=== PATIENT | female | born 1975 | race Caucasian/White ===

== ENCOUNTER 2016-07-14 18:04 | Inpatient (IN) | payer BC ==
[~2016-07-14] VITALS: Ht 165.1 cm; Wt 91.6 kg
[2016-07-14 18:28] VITALS: BP 125/69
[2016-07-14] MEDS ORDERED: COLACE100 MG PO (18:36)
[2016-07-14] MEDS ORDERED: PRENATAL TABLE1 EAC3 PO (18:36)
[2016-07-14] MEDS ORDERED: PROZAC40 MG PO (18:36)
[2016-07-14] MEDS ORDERED: PROBIOTIC1 EAC7 PO (18:37)
[2016-07-14] MEDS ORDERED: EVENING PRIMR1000 MG PO (18:37)
[2016-07-14 19:39] VITALS: BP 126/80
[2016-07-14 20:30] VITALS: BP 116/77
[2016-07-14 20:40] LABS: EOSINOPHIL (%) 0.2 % (0-5); HEMATOCRIT 37.7 % (36.0-46.0); IMMATURE GRANULOCYTE (%) 0.9 % (0.0-0.7); IMMATURE GRANULOCYTE COUNT 0.1 K/uL; MCHC 34.7 G/DL (30.0-36.0); MEAN PLAT.VOLUME 11.6 uM^3 (9.5-12.4); MONOCYTE (%) 7.1 % (3-12); MONOCYTE COUNT 0.7 K/uL (0-0.8); NEUTROPHIL (%) 71.8 % (45-76); NEUTROPHIL COUNT 7.1 K/uL (1.8-6.4); PLATELET COUNT 135 K/uL (156-360); RBC DIS.WIDTH-SD 45.2 % (39-53); RED BLOOD COUNT 3.97 M/uL (3.80-5.20); WHITE BLOOD COUNT 9.8 K/uL (4.1-10.2)
[2016-07-14 21:15] LABS: ALKALINE PHOSPHATASE 160 IU/L (3-129); ANION GAP 8 MEQ/L (2-14); CHLORIDE 102 MEQ/L (99-109); GFR ESTIMATE (CALCULATED) > 59 mL/min/; GLUCOSE 115 mg/dL (70-99); POTASSIUM 3.6 MEQ/L (3.7-5.4); SAMPLE HEMOLYSIS CHECK 0; SAMPLE ICTERIC CHECK 0; SAMPLE LIPEMIA CHECK 0; SODIUM 134 MEQ/L (136-147); TOTAL BILIRUBIN 0.5 MG/DL (0.0-1.0); UREA NITROGEN (BUN) 17 mg/dL (9-23)
[2016-07-14 21:26] VITALS: BP 119/72
[2016-07-14 21:46] LABS: POINT-OF-CARE METER ID UU13113801
[2016-07-14 22:26] VITALS: BP 126/80
[2016-07-14 23:12] VITALS: BP 97/54
[2016-07-15] VITALS (24 sets, daily range): BP systolic 89–125; BP diastolic 50–82
[2016-07-15 05:24] LABS: POINT-OF-CARE METER ID UU13113801
[2016-07-15 09:36] LABS: POINT-OF-CARE METER ID UU13113801
[2016-07-15 13:10] LABS: POINT-OF-CARE METER ID UU13113801
[2016-07-15 17:35] LABS: POINT-OF-CARE METER ID UU13113801
[2016-07-15 21:55] LABS: POINT-OF-CARE METER ID UU13113801
[2016-07-16] VITALS (23 sets, daily range): BP systolic 97–144; BP diastolic 54–75
[2016-07-16 05:14] LABS: POINT-OF-CARE METER ID UU13113801
[2016-07-16 09:19] LABS: POINT-OF-CARE METER ID UU13113801
[2016-07-16 14:23] LABS: POINT-OF-CARE METER ID UU13113801
[2016-07-16 16:20] LABS: POINT-OF-CARE METER ID UU13113801
[2016-07-17 01:11] VITALS: BP 104/55
[2016-07-17 07:40] VITALS: BP 103/60
[2016-07-17 08:15] LABS: EOSINOPHIL (%) 0.1 % (0-5); HEMATOCRIT 30.3 % (36.0-46.0); IMMATURE GRANULOCYTE (%) 0.5 % (0.0-0.7); IMMATURE GRANULOCYTE COUNT 0.1 K/uL; LYMPHOCYTE COUNT 1.2 K/uL (1.0-2.8); MCH 33.4 PG (29.0-34.0); MCHC 34.7 G/DL (30.0-36.0); MCV 96.5 FL (83-99); MEAN PLAT.VOLUME 11.7 uM^3 (9.5-12.4); MONOCYTE (%) 6.8 % (3-12); NEUTROPHIL (%) 84.5 % (45-76); NEUTROPHIL COUNT 12.8 K/uL (1.8-6.4); PLATELET COUNT 111 K/uL (156-360); RBC DIS.WIDTH-CV 13.3 % (11.8-14.6); RBC DIS.WIDTH-SD 45.6 % (39-53)
[2016-07-17 08:20] LABS: RED BLOOD COUNT 3.14 M/uL (3.80-5.20); WHITE BLOOD COUNT 15.2 K/uL (4.1-10.2)
[2016-07-17 11:30] VITALS: BP 106/64
[2016-07-17 14:57] VITALS: BP 105/55
[2016-07-17 18:58] VITALS: BP 112/58
[2016-07-17 22:38] VITALS: BP 108/64
[2016-07-18 03:08] VITALS: BP 85/49
[2016-07-18 08:02] VITALS: BP 120/61
[2016-07-18 11:47] VITALS: BP 94/53
[2016-07-18 15:26] VITALS: BP 92/57
[2016-07-18 19:46] VITALS: BP 110/69
[2016-07-18 23:14] VITALS: BP 108/67
[2016-07-19 07:44] VITALS: BP 105/65
[2016-07-19] MEDS ORDERED: IBUPROFEN800 MG PO (09:15)
[2016-07-19] MEDS ORDERED: ENDOCET 5-3251 EACH PO (09:15)
== END 2016-07-19 12:50 | disposition home or self-care (01) | DRG 766 ==
LOC: LDRP-OP → 2WEST 18:05 → LDRP-OP 23:39 → 2WEST 07-16 17:39 → LDRP-OP 08-16 15:36
PROVIDERS: Advanced Practice Midwife; Obstetrics & Gynecology; Obstetrics & Gynecology Obstetrics
PROC: 3E0P7GC Introduction of Other Therapeutic Substance into Female Reproductive, Via Natural or Artificial Opening (ICD-10-PCS; 2016-07-14)
PROC: 10D00Z1 Extraction of Products of Conception, Low, Open Approach (ICD-10-PCS; principal; 2016-07-16)
PROC: 0UB70ZZ Excision of Bilateral Fallopian Tubes, Open Approach (ICD-10-PCS; principal; 2016-07-16)
PROC: 10907ZC Drainage of Amniotic Fluid, Therapeutic from Products of Conception, Via Natural or Artificial Opening (ICD-10-PCS; 2016-07-16)
PROC: 00HU33Z Insertion of Infusion Device into Spinal Canal, Percutaneous Approach (ICD-10-PCS; 2016-07-16)
PROC: 3E0R3CZ (ICD-10-PCS; 2016-07-16)
DX: O62.0 Primary inadequate contractions (principal); O76 Abnormality in fetal heart rate and rhythm complicating labor and delivery; Z30.2 Encounter for sterilization; O77.0 Labor and delivery complicated by meconium in amniotic fluid; O24.420 Gestational diabetes mellitus in childbirth, diet controlled; O99.344 Other mental disorders complicating childbirth; F41.9 Anxiety disorder, unspecified; O99.214 Obesity complicating childbirth; E66.9 Obesity, unspecified; Z68.32 Body mass index [BMI] 32.0-32.9, adult; Z3A.39 39 weeks gestation of pregnancy; Z37.0 Single live birth
CPT/HCPCS: 80053; 82948; 85025; 86850; 86900; 86901; 88302; C1755; G0378; J0595; J0690; J1885; J2274; J2765; J3010; J7050; J7120; Q0169